=== PATIENT | male | born 1960 | race Two or more races ===

== ENCOUNTER 2024-04-25 03:19 | Emergency (ER) | payer OTHER, MEDICAID ==
[~2024-04-25] VITALS: Ht 165.1 cm; Wt 58.0 kg
[2024-04-25 04:02] VITALS: PULSE 67; RESP 16; O2SAT 98
[2024-04-25] MEDS: ONDANSETRON ODT 4 MG TAB PO ONE (04:08)
--- NOTE | 2024-04-25 04:11 | ED.PDOC ---
History of Present Illness HPI Comments 64 y/o M presents with c/o generalized weakness and nonproductive cough, today. Patient is a poor historian and endorses on returning to the ED, this morning, after being seen and discharge from a previous visit, earlier, today. He comments on having symptoms for the past 2x days. He denies any fever, chills, abdominal pain, nausea, vomiting, or other associated symptoms at this time. Chief Complaint: General Weakness Time Seen by MD: 03:45 Reviewed Notes: Nurses Notes, Medications, Allergies Allergies: Coded Allergies: NO KNOWN ALLERGIES (Unverified , 04/25/24) Information Source: Patient Mode of Arrival: Ambulatory Severity: Moderate Timing: Days Duration: Since onset Prehospital treatment: None Past Medical History PAST MEDICAL HISTORY: Denies Surgical History: Denies all surgeries Family History Family History: Reviewed,noncontributory to illness Social History Smoker: Non-Smoker Alcohol: Heavy Drugs: Denies Drug Use Lives In: Home All Other Systems: Reviewed and Negative (negative unless otherwise stated above or in HPI) Physical Exam General Appearance: No Apparent Distress, Normal HEENT: Normal ENT Inspection, Pharynx Normal, TMs Normal Neck: Full Range of Motion, Non-Tender, Normal, Normal Inspection Respiratory: Chest Non-Tender, Lungs Clear, No Accessory Muscle Use, No Respi ratory Distress, Normal Breath Sounds Cardiovascular: No Edema, No JVD, No Murmur, No Gallop, Normal Peripheral Pulses, Regular Rate/Rhythm Breast Exam: Deferred Gastrointestinal: No Organomegaly, Non Tender, No Pulsatile Mass, Normal Bowel Sounds, Soft Genitalia: Deferred Pelvic: Deferred Rectal: Deferred Extremities: No calf tenderness, Normal capillary refill, Normal inspection, Normal range of motion, Non-tender, No pedal edema Musculoskeletal : Apperance: Normal Neurologic: Alert, 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 Was a procedure done?: No Differential Dx Considerations may include: alcohol intoxication, substance abuse, alcohol withdrawals, electrolyte imbalance, dehydration X-Ray, Labs, Meds, VS Vital Signs Date Time Temp Pulse Resp B/P (MAP) Pulse Ox O2 Delivery O2 Flow Rate FiO2 04/25/24 07:17 66 16 96 Room Air 04/25/24 07:17 97.5 66 16 121/76 (91) 96 97.5 04/25/24 04:02 67 16 98 Room Air* 0 21 04/25/24 04:02 98.1 67 16 117/52 (73) 98 98.1 04/25/24 03:37 98.1 67 16 117/52 (73) 98 Current Medications Medications (Trade) Dose Ordered Sig/Jacqueline Route Start Time Stop Time Status Last Admin Ondansetron HCl (Zofran Po) 8 mg ONCE ONCE PO 04/25/24 04:00 04/25/24 04:01 DC 04/25/24 04:08 Time of 1ST Reevaluation: 04:15 Reevaluation 1ST: Unchanged Time of 2ND Reevaluation: 05:00 Reevaluation 2ND: Improved Patient Education/Counseling: Diagnosis, Treatment Family Education/Counseling: No Family Present Departure 1 Departure Time of Disposition: 05:00 Impression: Primary Impression: Generalized weakness Disposition: 01 HOME / SELF CARE / HOMELESS Condition: Stable Discharged With: Self Critical Care Note Critical Care Time?: No Stability Stability form required: No Heart Score Heart Score: Heart Score Response (Comments) Value History N/A 0 EKG N/A 0 Age N/A 0 Risk Factors N/A 0 Troponin N/A 0 Total 0 I personally scribed for RADHA BLANCO MD ([email or web address]) on 04/25/24 at 04:11. Electronically submitted by Wilmer Montana [email or web address]). RADHA BLANCO MD Apr 25, 2024 04:11
[2024-04-25 07:17] VITALS: BP 121/76; PULSE 66; RESP 16; TEMP 97.5; O2SAT 96
== END 2024-04-25 07:22 | disposition home or self-care (01) ==
LOC: ER 03:19
DX: R53.1 Weakness (principal); R05.9 Cough, unspecified
CPT/HCPCS: 99283; Q0162; 87426; 87804